=== PATIENT | male | born 1965 | race Caucasian/White ===

== ENCOUNTER 2017-01-27 23:41 | Inpatient (IN) ==
[2017-01-28 00:53] LABS: Basophils % 0.2 % (0.0-0.8); Eosinophils # 0.1 10*3/uL (0.0-0.87); Eosinophils % 0.7 % (0.00-10.9); Hemoglobin 16.8 GM/DL (14.0-18.0); Immature Granulocytes % 0.6 %; Immature Granulocytes Absolute 0.12 #; Lymphocytes # 2.7 10*3/uL (1.4-4.0); Lymphocytes % 14.5 % (21.2-54.2); Mean Corpuscular HGB Conc 35.7 GM/DL (32-36); Mean Corpuscular Hemoglobin 30 PG (27-34); Mean Corpuscular Volume 83.2 FL (87-102); Mean Platelet Volume 12.1 FL (9.6-12.0); Monocytes # 1.5 10*3/uL (0.11-0.8); Monocytes % 7.8 % (1.7-12.7); Neutrophils # 14.4 10*3/uL (1.4-7.4); Neutrophils % 76.2 % (38.7-73.9); Platelet Count 188 T/CUMM (130-400); Red Blood Count 5.65 MC/CUMM (3.8-5.5); Red Cell Distribution Width 11.9 % (9.3-17.3); White Blood Count 18.8 T/CUMM (4-12)
--- NOTE | 2017-01-28 01:02 | Emergency Department Note ---
ILennie Mantricia, am scribing for, and in the presence of, Marly Chappell DO 00:18. ITa Debra, DO, personally performed the services described in this documentation, ascribed by Prakash Hogue in my presence, and it is both accurate and complete . Arrival - Arrival Chief Complaint: Extremity Problem Stated Complaint: foot-toe diabetic ED Nursing Triage Note: C/O RIGHT FOOT PAIN WITH ONSET COUPLE WEEKS AGO. BOTTOM OF GREAT TOE HAS DRAINAGE WITH BLACK TISSUE Mode of Arrival: Wheelchair Limitations: No Limitations Source: Patient Time Seen by Provider: 01/28/17 00:01 - History of Present Illness HPI Narrative: Pt is a 51 y/o white male arriving to ED via wheelchair with c/o wound to RLE that onset "weeks" ago. Pt states that this wound was due to a fall 8 years ago. He states that he was told a year ago that he was a diabetic. Pt reports that he has not taken his medications in 2 months. He states that the wound has now began to drain. No other complaints were reported to ED. Onset (ago): week(s) Consistency: constant Severity: moderate Allergies/Adverse Reactions: Allergies Allergy/AdvReac Type Severity Reaction Status Date / Time Penicillins Allergy RASH Verified 01/27/17 23:48 Review of System - Review of System 12 point system: reviewed and no additional remarkable complaints except as stated - Review of System Constitutional: Absent: chills, diaphoresis, fever Respiratory: Absent: cough Gastrointestinal: Absent: abdominal pain, nausea, vomiting, diarrhea Musculoskeletal: Present: other (wound to right foot). Absent: arm pain, back pain, leg pain, neck pain Medical,Surgical,& Family Hx - Medical History Endocrine: History of: Diabetes Mellitus (NIDDM) Respiratory: History of: Respiratory Problems - Family History Family History: Reports;: Family Cancer, Family Diabetes, Family Heart Disease, Family Hypertension - Social History Smoking Status: Current every day smoker Frequency of Alcohol Use: None Type of Drug Use: Marijuana Exam Vital Signs: Vital Signs Temperature 98.7 F 01/28/17 00:00 Pulse Rate 122 H 01/28/17 00:00 Respiratory Rate 20 01/28/17 00:00 Blood Pressure 156/100 01/28/17 00:00 O2 Sat by Pulse Oximetry 99 01/27/17 23:43 - General General appearance: alert, in no apparent distress, other (poor hygiene) - Head Head exam: Present: atraumatic, normocephalic - Eye Eye exam: Present: normal appearance, PERRL, EOMI - ENT ENT exam: Present: normal exam - Neck Neck exam: Present: normal inspection - Chest Chest inspection: Present: normal inspection - Respiratory Respiratory exam: Present: normal lung sounds bilaterally - Cardiovascular Cardiovascular exam: Present: regular rate, normal rhythm, normal heart sounds - Abdominal Exam Abdominal exam: Present: soft. Absent: distention, tenderness, guarding, rebound - Extremities Exam Extremities exam: Present: normal capillary refill, other (necrotic tissue wound to right great toe; blacked; foul smelling) - Back Exam Back exam: Present: normal inspection - Neurological Exam Neurological exam: Present: alert, oriented X3, CN II-XII intact - Psychiatric Psychiatric exam: Present: normal affect, normal mood - Skin Skin exam: Present: warm, dry, intact, normal color Course Course Narrative: pt will be admitted to hospitalist with sx to be consulted. is stable at this time . clindamycin started. Results - Labs CBC & BMP: 01/28/17 00:17 01/28/17 00:17 Lab Results: I have reviewed the patients labs Disposition Clinical Impression: Diabetic ulcer of foot associated with type 2 diabetes mellitus, with necrosis of bone Case discussed with: patient, patient's family Disposition: Still a Patient Condition: Stable Time of Disposition: 01:42
[2017-01-28 01:07] LABS: Albumin 3.7 G/DL (3.4-5.0); Bilirubin,Total 0.9 MG/DL (0.2-1.0); Osmolality,Calculated 279.1 MOS/KG (273-304); Potassium 4.1 MMOL/L (3.5-5.1); Total Protein 8.3 G/DL (6.4-8.3)
[2017-01-28] MEDS ORDERED: CLINDAMYCIN INJ 900 MG in PREMIX 1 EACH IV STA (01:18)
[2017-01-28] MEDS ORDERED: CLINDAMYCIN INJ 50 ML IV ONE (01:20)
[2017-01-28 01:25] LABS: Band Neutrophils 3 % (0-10); Eosinophils 1 % (0-10); Lymphocytes 19 % (20-55); Myelocytes 1 %; Segmented Neutrophils 67 % (50-85); Total Cells Counted 100
[2017-01-28 01:26] LABS: Atypical Lymphocytes Few; Platelet Estimate Normal
[2017-01-28] MEDS ORDERED: MORPHINE 2 MG/1 ML SYRINGE IV PRN (03:19)
[2017-01-28] MEDS ORDERED: ONDANSETRON 4 MG/2 ML VIAL IV PRN (03:19)
[2017-01-28] MEDS ORDERED: ACETAMINOPHEN 325 MG TABLET PO PRN (03:19)
[2017-01-28] MEDS ORDERED: DEXTROSE 50% 25 GM/50 ML SYRINGE IV PRN (03:37)
[2017-01-28] MEDS ORDERED: GLUCAGON 1 MG VIAL IM PRN ×2 (03:37→14:53)
[2017-01-28 05:49] LABS: Basophils % 0.2 % (0.0-0.8); Eosinophils # 0.2 10*3/uL (0.0-0.87); Hemoglobin 14.7 GM/DL (14.0-18.0); Immature Granulocytes % 0.9 %; Immature Granulocytes Absolute 0.18 #; Lymphocytes # 3.6 10*3/uL (1.4-4.0); Lymphocytes % 18.2 % (21.2-54.2); Mean Corpuscular HGB Conc 35.9 GM/DL (32-36); Mean Corpuscular Hemoglobin 30 PG (27-34); Mean Platelet Volume 11.7 FL (9.6-12.0); Monocytes # 1.8 10*3/uL (0.11-0.8); Monocytes % 9.1 % (1.7-12.7); Neutrophils # 13.8 10*3/uL (1.4-7.4); Neutrophils % 70.6 % (38.7-73.9); Platelet Count 209 T/CUMM (130-400); Red Blood Count 4.94 MC/CUMM (3.8-5.5); Red Cell Distribution Width 11.9 % (9.3-17.3); White Blood Count 19.6 T/CUMM (4-12)
--- NOTE | 2017-01-28 05:54 | Hospitalist History & Physical ---
Assessment and Plan - Time spent with patient Time spent with patient: Greater than 30 minutes (1) Sepsis Status: Acute Assessment and plan: Admit to hospitalist services. Consult surgery. Consult wound care. Sepsis criteria: HR 122, RR 22, WBC 18.8, infection source: right great toe. Lactic acid pending. He may actually meet severe sepsis criteria depending on lactic acid results. Wound cultures obtained in ED; follow. Blood cultures ordered; follow. Given Clindamycin 900 mg IV in ED. Continue antibiotic therapy with Clindamycin. Hydrate with NS at 125 ml/hr. Current Visit: Yes (2) Diabetic ulcer of foot associated with type 2 diabetes mellitus, with necrosis of bone Status: Acute Assessment and plan: As above. Current Visit: Yes (3) Diabetes mellitus Status: Chronic Assessment and plan: He reports that the takes Metformin 1000 mg BID but doesn't have any home medications listed for review/reconciliation. ADA diet. Accuchecks and SSI ACHS. Current Visit: Yes Qualifiers: Diabetes mellitus type: type 2 Diabetes mellitus complication status: with skin complications Diabetes mellitus complication detail: with foot ulcer (4) Hypertension Status: Chronic Assessment and plan: He reports he takes Lisinopril 5 mg daily, but no home medications are listed for review/reconciliation. BP is elevated at 150/92. Start Lisinopril 5 mg PO daily. Monitor. Current Visit: Yes (5) DVT prophylaxis Status: Acute Assessment and plan: Lovenox 40 mg SQ daily. Current Visit: Yes History of Present Illness Chief complaint: Right foot pain and swelling History of present illness: Mr. Chavez is a 51 year old male with a reported past medical history of NIDDM, HTN, and COPD who presented to the ED tonight with complaints of right great toe and right foot pain, redness, swelling, and foul-smelling drainage x 2 weeks. He denies any known fever. He reports that he has not been taking his Metformin for the last 6-8 weeks because he recently moved to the area and hasn' t had the ability to establish with a PCP because of lack of transportation and money. His work-up in the ED was significant for HR 122, RR 22, WBC 18.8, Na 135 , and Blood glucose 257. Currently, he is sitting up in bed without any further complaints. Hospitalist services were consulted, and the patient will be admitted for further evaluation and treatment. Home medications were reviewed and reconciled. This patient is a full code. Allergies Allergy/AdvReac Type Severity Reaction Status Date / Time Penicillins Allergy RASH Verified 01/27/17 23:48 Medical,Surgical,& Family Hx - Medical History Cardio: History of: Hypertension Endocrine: History of: Diabetes Mellitus (NIDDM) Respiratory: History of: COPD, Respiratory Problems ("spots on Lungs"; told he needs a PET scan. ) Musculoskeletal: History of: Musculoskeletal Problems (Problems w/ feet after fall in 2009. ) - Surgical History Additional Surgical History: Surgical history discussed with the patient. He denies any surgical history. - Family History Family History: Reports;: Family Cancer, Family Diabetes, Family Heart Disease, Family Hypertension - Social History Smoking Status: Current every day smoker (1/2 ppd.) Have you smoked in the last 12 months: Yes Time spent discussing smoking cessation with patient: 3 to 10 minutes (3 minutes were spent discussing smoking cessation with the patient.) Frequency of Alcohol Use: None Type of Drug Use: Marijuana (reports occasional use. ) Marital Status: Lives With:: Alone Functional capacity: independent ambulation 12 point system: reviewed and no additional remarkable complaints except as stated - Constitutional Constitutional: Absent: anorexia, chills, fever(s), weakness - EENT Eyes: Absent: blurry vision, diplopia, loss of vision Ears: Absent: decreased hearing, ear discharge, ear pain Nose, mouth and throat: Absent: headache(s), nasal congestion, sore throat - Cardiovascular Cardiovascular: Absent: chest pain at rest, chest pain with activity, dyspnea, edema, orthopnea, palpitations - Respiratory Respiratory: Absent: cough, dyspnea, wheezing - Gastrointestinal Gastrointestinal: Absent: abdominal pain, constipation, diarrhea, nausea, vomiting - Genitourinary Genitourinary: Absent: dysuria, flank pain, hematuria, urinary frequency - Musculoskeletal Musculoskeletal: Present: other (pain, redness, swelling of right great toe and foot). Absent: arthralgias, joint swelling, muscle weakness, myalgias - Neurological Neurological: Absent: confusion, dizziness, numbness, paresthesias, syncope - Psychiatric Psychiatric: Absent: anxiety, depression - Endocrine Endocrine: Absent: cold intolerance, polydipsia, polyphagia, polyuria - Hematologic/Lymphatic Hematologic/Lymphatic: Absent: easy bleeding, easy bruising Exam - Constitutional Vitals: Period Temp Pulse Resp BP Sys/Sadler Pulse Ox Last 24 Hr 98.3 F-98.7 F 65-122 18-22 150-159/92-100 99-100 Exam: Constitutional System: Afebrile. Awake, alert and oriented x 3. No distress. No tremulousness. Head: Normocephalic, atraumatic. Ears, Nose and Throat System: No pain or tenderness. No epistaxis or discharge Eyes System: Pupils equal, round, and reactive. Extraocular muscles intact. Neck: Supple, without adenopathy, No jugular venous distention. No thyromegaly, neck mass, or prior surgery apparent. Respiratory System: Chest clear to auscultation. Cardiovascular System: Heart with tachycardic rate and rhythm. No murmur. GI System: Abdomen soft, nontender. Normo active bowel sounds present. Musculoskeletal System: Redness and swelling of right great toe and foot noted. Right great toe has necrotic area on plantar side. Foul-smelling drainage noted. Limbs with no pedal edema. Full distal pulses. Normal capillary refill. Neurological System: No discernable sensory deficit. No aphasia Psychiatric System: Conversation is rational Results - Labs CBC & BMP: 01/28/17 00:17 01/28/17 00:17 Lab Results: I have reviewed the past 24 hour labs
--- NOTE | 2017-01-28 06:14 | Event Note ---
Patient seen and examined agree with the finding assessment and management mentioned above unless indicated. Ms. Chavez is a 51-year-old with history of hypertension diabetes mellitus and COPD. He started having swelling redness and pain left foot for about 2 weeks. He denies any fever. No history of recent injury but does report remote injury to left foot. He was noted to have a leukocytosis and hypoglycemia he has been not taking his oral hypoglycemic medications On exam he has redness and tenderness and swelling left foot with some ulceration and necrotic area under the big toe. X-ray did not reveal any gross bony abnormalities but official report is pending. Blood culture has been obtained patient received IV clindamycin in the ER. He has been allergic to penicillin. Will treat with clindamycin and follow with the response. Wound care and surgery already consulted blood sugar has been monitored and short- acting insulin as needed is been ordered Mr. Chavez is a 51 year old male with a reported past medical history of NIDDM, HTN, and COPD who presented to the ED tonight with complaints of right great toe and right foot pain, redness, swelling, and foul-smelling drainage x 2 weeks. He denies any known fever. He reports that he has not been taking his Metformin for the last 6-8 weeks because he recently moved to the area and hasn' t had the ability to establish with a PCP because of lack of transportation and money. His work-up in the ED was significant for HR 122, RR 22, WBC 18.8, Na 135 , and Blood glucose 257. Currently, he is sitting up in bed without any further complaints. Hospitalist services were consulted, and the patient will be admitted for further evaluation and treatment. Home medications were reviewed and reconciled. This patient is a full code.
[2017-01-28 06:15] LABS: Calcium 8.9 MG/DL (8.5-10.1); Magnesium 1.7 MG/DL (1.8-2.4); Potassium 3.7 MMOL/L (3.5-5.1)
[2017-01-28] MEDS: SODIUM CHLORIDE 0.9% 1,000 ML IV SCH ×3 (06:46→22:40)
[2017-01-28] MEDS ORDERED: LEVOFLOXACIN INJ 750 MG in PREMIX 1 EACH IV SCH (08:00)
--- NOTE | 2017-01-28 08:13 | XRay Report ---
XR foot 2V RT Indication: Foot wound Comparison: None available Findings: No evidence of fracture seen. The alignment of the joints appears normal. Mild to moderate first metatarsal phalangeal joint degenerative change is present. Small amount of gas seen in the soft tissues of the first digit. No other soft tissue abnormality is seen. Impression: Small amount of gas in the soft tissues of the first digit. 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 No other evidence of abnormality demonstrated PROCEDURE INTERPRETED AT [facility] DEPARTMENT OF RADIOLOGY Final Report Signed by: Dr. Duarte Spencer
[2017-01-28] MEDS: ENOXAPARIN 40 MG/0.4 ML SYRINGE SUBCUT SCH (10:07)
[2017-01-28] MEDS: INSULIN LISPRO 100 UNIT/ML SUBCUT SCH ×4 (10:09→20:43)
[2017-01-28] MEDS: LISINOPRIL 5 MG TABLET PO SCH (10:09)
[2017-01-28] MEDS: VANCOMYCIN INJ 1,500 MG in SODIUM CHLORIDE 0.9% 500 ML IV SCH ×2 (10:10→20:42)
[2017-01-28] MEDS: PANTOPRAZOLE 40 MG TABLET PO SCH (10:10)
--- NOTE | 2017-01-28 10:15 | General Surgery Consult Note ---
Assessment and Plan (1) Diabetic ulcer of foot associated with type 2 diabetes mellitus, with necrosis of bone Status: Acute Assessment and plan: Impression: Diabetic foot infection Plan: X-ray shows no osteomyelitis. I discussed debridement of the nonviable tissue and the possibility of needing right great toe amputation. Patient is a pathetic and says to do whatever needs to be done. He was rude at times. The risk of the procedure including bleeding, infection, damage to surrounding structures, need for further surgery, possibility of needing great toe amputation, open wound were all discussed in detail and he says simply "go ahead ". Current Visit: Yes History of Present Illness Chief complaint: Diabetic infection right foot History of present illness: Mr. Chavez is a 51 year old male presented to the emergency room. He was admitted by the hospitalist and surgery was consulted upon admission. Patient has a diabetic infection of his right great toe. He has purulence draining. This is been going on for 2 weeks. He denies fever. He was tachycardic upon admission. He is not been taking his metformin. Home Medications Medication Instructions Recorded Confirmed Type Gabapentin Cap/Tab [Neurontin 01/28/17 History Cap/Tab] Lisinopril [Prinivil] 5 mg PO DAILY 01/28/17 01/28/17 History Topiramate [Topamax] 01/28/17 History metFORMIN [Glucophage] 1,000 mg PO BID 01/28/17 01/28/17 History Allergies Allergy/AdvReac Type Severity Reaction Status Date / Time Penicillins Allergy RASH Verified 01/27/17 23:48 Medical,Surgical,& Family Hx - Medical History Cardio: History of: Hypertension Endocrine: History of: Diabetes Mellitus (NIDDM) Respiratory: History of: COPD, Respiratory Problems ("spots on Lungs"; told he needs a PET scan. ) Musculoskeletal: History of: Musculoskeletal Problems (Problems w/ feet after fall in 2009. ) - Surgical History Abdominal Surgeries: Surgical HX of: Colonoscopy ("a year ago") - Family History Family History: Reports;: Family Cancer, Family Diabetes, Family Heart Disease, Family Hypertension - Social History Smoking Status: Current every day smoker (1/2 ppd.) Frequency of Alcohol Use: None Type of Drug Use: Marijuana (reports occasional use. ) 12 point system: reviewed and no additional remarkable complaints except as stated Exam - Constitutional Vitals: Period Temp Pulse Resp BP Sys/Sadler Pulse Ox Last 24 Hr 97.6 F-98.7 F 65-122 18-22 150-159/83-100 97-100 General appearance: no acute distress - Head Head exam: Present: normocephalic - Neck Neck exam: Present: normal inspection - Respiratory Respiratory exam: Present: clear to auscultation bilaterally - Cardiovascular Cardiovascular exam: Present: RRR - GI/Abdominal GI/Abdominal exam: Present: soft - Extremities Exam Extremities exam: Present: other (Right great toe with necrotic tissue and foul- smelling purulence draining. He has erythema in the right great toe is moderately swollen. Erythema extends approximately to the distal foot. He is tender near the metatarsophalangeal joint.) - Neurological Exam Neurological exam: Present: alert, oriented X3 Speech: Present: normal - Skin Skin exam: Present: warm, erythema Results - Labs CBC & BMP: 01/28/17 05:38 01/28/17 05:38 Lab Results: I have reviewed the past 24 hour labs
--- NOTE | 2017-01-28 12:02 | Hospitalist Progress Note ---
Assessment and Plan (1) Diabetic ulcer of foot associated with type 2 diabetes mellitus, with necrosis of bone Status: Acute Assessment and plan: possible need for amputation, change abx to vanco and meropenem, put in isolation Current Visit: Yes (2) Sepsis Status: Acute Assessment and plan: 1.3, cont ns Current Visit: Yes (3) Diabetes mellitus Status: Chronic Assessment and plan: Globin A1c of 8, blood sugars elevated. Patient going to the OR for most likely amputation hold off restarting meds, until eating Current Visit: Yes Qualifiers: Diabetes mellitus type: type 2 Diabetes mellitus complication status: with skin complications Diabetes mellitus complication detail: with foot ulcer (4) Hypertension Status: Chronic Assessment and plan: cont lisinopril Current Visit: Yes (5) DVT prophylaxis Status: Acute Assessment and plan: cont lovenox Current Visit: Yes Hospitalist: Subjective Interval history: Patient not very talkative when I was in the room. He just wanted to sleep. He had a necrotic area on his right big toe. Surgery had yet to see him. Dr. Finch has recommended debridement. Medications reviewed and reconciled. Exam - Constitutional Vitals: Period Temp Pulse Resp BP Sys/Sadler Pulse Ox Last 24 Hr 97.6 F-98.7 F 65-122 18-22 150-159/83-100 97-100 Exam: Heart Rate-[RRR] Lungs-[CTAB] GI-[+bs soft, NT] Ext-[right great toe necrosis on the back of his toe.] Neuro sleeping did not want to be bothered psych depressed mood and affect General [no acute distress] Results - Labs CBC & BMP: 01/28/17 05:38 01/28/17 05:38 Lab Results: I have reviewed the past 24 hour labs - Diagnostic Findings Procedure: X-ray: report reviewed by me (Small amount of gas in the tissues of his right toe.)
[2017-01-28] MEDS ORDERED: PROPOFOL 200 MG/20 ML VIAL IV ONE (12:55)
[2017-01-28] MEDS ORDERED: PHENYLEPHRINE 1 MG/10 ML SYRINGE IV ONE (12:55)
[2017-01-28] MEDS ORDERED: LIDOCAINE 2% 5 ML VIAL ONE (12:55)
--- NOTE | 2017-01-28 13:39 | Operative Note ---
Date of procedure: 01/28/17 Pre-op diagnosis: Diabetic infection right foot and right great toe Post-op diagnosis: same (Infection involved fascia and the distal phalanx) Procedure: Procedure performed: Excisional debridement of right great toe and right distal foot including necrotic infected skin subcutaneous tissue, fascia and bone. Area debrided was 8 x 3 cm Procedure in detail: After informed consent was obtained, patient was taken operating suite lies upon the operating table. After monitored anesthesia was initiated the right foot was prepped and draped in usual sterile fashion. A procedural pause local anesthetic infiltrated the skin and subcutaneous tissue. Incision was made on the plantar aspect of the great toe around the necrotic skin. I encountered necrotic subcutaneous tissue that extended onto the foot below the skin level. Incision was extended to allow further excision of all the necrotic tissue. The infection appeared to track along the plantar fascia to the distal foot. There was copious amount of foul-smelling purulence. Cultures obtained and sent. All of the necrotic subcutaneous tissue skin and fascia was removed. The tip of the phalanx was exposed to the necrotic tissue. The tip of the phalanx was Chacho consistent with osteomyelitis. Bone rongeurs were used to debride and remove all the obvious osteomyelitic bone. The wound was irrigated and suctioned. It was packed with Dakin soaked gauze. Sterile dressings applied and the patient tolerated the procedure well. Will continue antibiotics and local wound care but salvage of this toe is questionable. Patient was transferred to the recovery room in stable condition. All lap and needle counts were correct at the end of the case. Anesthesia: MAC Surgeon / Physician: Fabio Finch Estimated blood loss: other (Less than 10 cc) Specimens: other (Culture sent) Condition: stable Disposition: PACU Results - Labs CBC & BMP: 01/28/17 05:38 01/28/17 05:38 Discharge Plan - Discharge Medications No Action Topiramate [Topamax] Lisinopril [Prinivil] 5 mg PO DAILY Gabapentin Cap/Tab [Neurontin Cap/Tab] metFORMIN [Glucophage] 1,000 mg PO BID - Follow Up or Referral - Forms/Instructions
--- NOTE | 2017-01-28 13:47 | Anesthesia Post-Op ---
Anesthesia Post OP - Post Ansesthetic Evaluation Patient seen in post op: Yes Resp: within normal limits CV: within normal limits Mental: within normal limits Temp: within normal limits [id number]: within normal limits Nausea and Vomiting: within normal limits Pain: within normal limits
[2017-01-28] MEDS ORDERED: fentaNYL 100 MCG/2 ML VIAL ONE (13:53)
[2017-01-28] MEDS ORDERED: MIDAZOLAM 2 MG/2 ML VIAL ONE (13:53)
[2017-01-28] MEDS ORDERED: DEXTROSE 50% 25 GM/50 ML VIAL IV PRN (14:53)
[2017-01-28] MEDS: MEROPENEM 1,000 MG in SODIUM CHLORIDE 0.9% 50 ML IV SCH ×2 (15:12→22:40)
[2017-01-28] MEDS: metFORMIN 500 MG TABLET PO SCH (20:38)
[2017-01-28] MEDS: GABAPENTIN 100 MG CAPSULE PO SCH (20:39)
[2017-01-28] MEDS: TOPIRAMATE 25 MG TABLET PO SCH (20:39)
[2017-01-29 03:33] LABS: Basophils % 0.2 % (0.0-0.8); Eosinophils # 0.2 10*3/uL (0.0-0.87); Eosinophils % 1.7 % (0.00-10.9); Hematocrit 34.3 VOL% (42.0-52.0); Hemoglobin 12.2 GM/DL (14.0-18.0); Immature Granulocytes % 0.6 %; Immature Granulocytes Absolute 0.08 #; Lymphocytes # 2.9 10*3/uL (1.4-4.0); Lymphocytes % 22.2 % (21.2-54.2); Mean Corpuscular HGB Conc 35.6 GM/DL (32-36); Mean Corpuscular Hemoglobin 30 PG (27-34); Mean Corpuscular Volume 83.3 FL (87-102); Monocytes # 1.1 10*3/uL (0.11-0.8); Monocytes % 8.7 % (1.7-12.7); Neutrophils # 8.5 10*3/uL (1.4-7.4); Neutrophils % 66.6 % (38.7-73.9); Platelet Count 248 T/CUMM (130-400); Red Blood Count 4.12 MC/CUMM (3.8-5.5); Red Cell Distribution Width 11.9 % (9.3-17.3); White Blood Count 12.8 T/CUMM (4-12)
[2017-01-29] MEDS: MEROPENEM 1,000 MG in SODIUM CHLORIDE 0.9% 50 ML IV SCH ×3 (06:20→22:35)
[2017-01-29] MEDS: INSULIN LISPRO 100 UNIT/ML SUBCUT SCH ×4 (10:20→21:34)
[2017-01-29] MEDS: VANCOMYCIN INJ 1,500 MG in SODIUM CHLORIDE 0.9% 500 ML IV SCH ×2 (10:33→20:56)
[2017-01-29] MEDS: ENOXAPARIN 40 MG/0.4 ML SYRINGE SUBCUT SCH (10:33)
[2017-01-29] MEDS: GABAPENTIN 100 MG CAPSULE PO SCH ×2 (10:33→20:55)
[2017-01-29] MEDS: metFORMIN 500 MG TABLET PO SCH ×2 (10:34→20:56)
[2017-01-29] MEDS: LISINOPRIL 5 MG TABLET PO SCH (10:34)
[2017-01-29] MEDS: PANTOPRAZOLE 40 MG TABLET PO SCH (10:34)
[2017-01-29] MEDS: SODIUM CHLORIDE 0.9% 1,000 ML IV SCH ×3 (10:42→23:07)
--- NOTE | 2017-01-29 11:04 | Event Note ---
Afebrile vital signs stable. White blood cell count improved to 12.8. The wound appears clean and healthy. Still with some tenderness of the distal foot. There is no necrotic tissue present. Erythema has improved. Continue local wound care and antibiotics.
--- NOTE | 2017-01-29 12:21 | Hospitalist Progress Note ---
Assessment and Plan (1) Diabetic ulcer of foot associated with type 2 diabetes mellitus, with necrosis of bone Status: Acute Assessment and plan: Status post debridement. Continue vancomycin and meropenem, with culture growing gram-negative rods and gram-positive cocci Current Visit: Yes (2) Sepsis Status: Acute Assessment and plan: 1.3, cont ns Current Visit: Yes (3) Diabetes mellitus Status: Chronic Assessment and plan: BS not controlled, Current Visit: Yes Qualifiers: Diabetes mellitus type: type 2 Diabetes mellitus complication status: with skin complications Diabetes mellitus complication detail: with foot ulcer (4) Hypertension Status: Chronic Assessment and plan: stop lisinopril, cont ns Current Visit: Yes (5) DVT prophylaxis Status: Acute Assessment and plan: cont lovenox Current Visit: Yes Hospitalist: Subjective Interval history: Dr. Finch was able to save the toe yesterday. He had aggressive debridement of his right big toe. Patient very depressed. He has no insurance and he is in the process of filing for disability. He lives alone and has limited care for him but his sister is a nurse at the hospital here and lives about 5 miles from him. He probably will not be able to put pressure on this toe for a while. Exam - Constitutional Vitals: Period Temp Pulse Resp BP Sys/Sadler Pulse Ox Last 24 Hr 97.0 F-99.3 F 66-87 16-20 96-127/48-81 92-99 Exam: Heart Rate-[RRR] Lungs-[CTAB] GI-[+bs soft, NT] Ext-[right toe debridement, no necrosis, clean Neuro motor 5/5, alert and oriented times 3 psych depressed mood and affect General [no acute distress] Results - Labs CBC & BMP: 01/29/17 02:34 01/28/17 05:38 Lab Results: I have reviewed the past 24 hour labs Labs: Blood cultures negative no growth, wound culture growing gram-negative rods, and gram positive cocci
[2017-01-29] MEDS: TOPIRAMATE 25 MG TABLET PO SCH (20:56)
[2017-01-30] MEDS: MEROPENEM 1,000 MG in SODIUM CHLORIDE 0.9% 50 ML IV SCH ×3 (06:25→23:27)
[2017-01-30 06:32] LABS: Basophils % 0.4 % (0.0-0.8); Eosinophils # 0.7 10*3/uL (0.0-0.87); Eosinophils % 7.4 % (0.00-10.9); Hematocrit 33.4 VOL% (42.0-52.0); Immature Granulocytes % 0.7 %; Immature Granulocytes Absolute 0.07 #; Lymphocytes # 2.3 10*3/uL (1.4-4.0); Lymphocytes % 24.4 % (21.2-54.2); Mean Corpuscular HGB Conc 35.9 GM/DL (32-36); Mean Corpuscular Hemoglobin 30 PG (27-34); Mean Corpuscular Volume 83.5 FL (87-102); Mean Platelet Volume 12.4 FL (9.6-12.0); Monocytes # 0.9 10*3/uL (0.11-0.8); Neutrophils # 5.5 10*3/uL (1.4-7.4); Neutrophils % 58.1 % (38.7-73.9); Platelet Count 219 T/CUMM (130-400); Red Cell Distribution Width 11.9 % (9.3-17.3); White Blood Count 9.4 T/CUMM (4-12)
[2017-01-30] MEDS: INSULIN LISPRO 100 UNIT/ML SUBCUT SCH ×4 (07:45→20:49)
[2017-01-30] MEDS: ENOXAPARIN 40 MG/0.4 ML SYRINGE SUBCUT SCH (08:22)
[2017-01-30] MEDS: metFORMIN 500 MG TABLET PO SCH ×2 (08:22→20:47)
[2017-01-30] MEDS: GABAPENTIN 100 MG CAPSULE PO SCH ×2 (08:22→20:46)
[2017-01-30] MEDS: PANTOPRAZOLE 40 MG TABLET PO SCH (08:26)
[2017-01-30] MEDS: VANCOMYCIN INJ 1,500 MG in SODIUM CHLORIDE 0.9% 500 ML IV SCH ×2 (09:21→18:40)
--- NOTE | 2017-01-30 10:26 | Event Note ---
Patient is postop day #2 status post excisional debridement of diabetic infection of the right foot. He continues on vancomycin and Merrem with cultures pending; pulmonary cultures with gram-negative rods and gram-positive cocci. He had a low-grade fever overnight T-max 100.1. Patient reports overall he feels improved. On exam, the erythema is unchanged compared to yesterday. The wound bed has serous exudate without significant malodor noted; the wound bed tissue is viable. The distal phalanx is palpable. Leukocytosis has resolved. At this point, recommend continuing IV antibiotics, local wound care and monitoring. The patient is still at risk to undergo some level of amputation.
--- NOTE | 2017-01-30 13:27 | Hospitalist Progress Note ---
Assessment and Plan (1) Diabetic ulcer of foot associated with type 2 diabetes mellitus, with necrosis of bone Status: Acute Assessment and plan: The patient continues with IV vancomycin and IV meropenem. I coordinate care with Dr. Beatty and he is considering further amputation. Diabetes is well- controlled at present. Current Visit: Yes (2) Sepsis Status: Acute Current Visit: Yes (3) Diabetes mellitus Status: Chronic Current Visit: Yes Qualifiers: Diabetes mellitus type: type 2 Diabetes mellitus complication status: with skin complications Diabetes mellitus complication detail: with foot ulcer (4) Hypertension Status: Chronic Current Visit: Yes Hospitalist: Subjective Interval history: The patient was admitted to the hospital with right diabetic foot infection. The patient has had debridement by Dr. Beatty and continues on IV antibiotics with vancomycin and meropenem. I coordinate care with Dr. Beatty today and updated the patient concerning his condition. The patient may require further amputation. Exam - Constitutional Vitals: Period Temp Pulse Resp BP Sys/Sadler Pulse Ox Last 24 Hr 97.9 F-100.1 F 75-81 18-21 108-155/54-90 93-100 Exam: Constitutional System: Mild distress on account of foot pain. No tremulousness. Head: Normocephalic, atraumatic. Ears, Nose and Throat System: No evidence of Otitis or Mastoiditis. No epistaxis or discharge Eyes System: Pupils equal, round, and reactive. Extraocular muscles intact. Neck: Supple, without adenopathy, No jugular venous distention. No thyromegaly , neck mass, or prior surgery apparent. Respiratory System: Chest clear to auscultation. Cardiovascular System: Heart with regular rate and rhythm. No murmur. GI System: Abdomen soft, nontender. Normo active bowel sounds present. Results - Labs CBC & BMP: 01/30/17 04:32 01/28/17 05:38 Lab Results: I have reviewed the past 24 hour labs
[2017-01-30] MEDS: SODIUM CHLORIDE 0.9% 1,000 ML IV SCH (15:19)
[2017-01-30] MEDS: TOPIRAMATE 25 MG TABLET PO SCH (20:48)
[2017-01-31] MEDS: VANCOMYCIN INJ 1,500 MG in SODIUM CHLORIDE 0.9% 500 ML IV SCH ×3 (02:04→18:48)
[2017-01-31] MEDS: MEROPENEM 1,000 MG in SODIUM CHLORIDE 0.9% 50 ML IV SCH ×3 (06:10→21:47)
[2017-01-31 07:12] LABS: Basophils % 0.4 % (0.0-0.8); Eosinophils # 0.9 10*3/uL (0.0-0.87); Eosinophils % 9.9 % (0.00-10.9); Hematocrit 34.8 VOL% (42.0-52.0); Hemoglobin 12.2 GM/DL (14.0-18.0); Immature Granulocytes % 0.4 %; Immature Granulocytes Absolute 0.04 #; Lymphocytes # 2.2 10*3/uL (1.4-4.0); Lymphocytes % 24.4 % (21.2-54.2); Mean Corpuscular HGB Conc 35.1 GM/DL (32-36); Mean Corpuscular Hemoglobin 29 PG (27-34); Mean Corpuscular Volume 83.9 FL (87-102); Monocytes # 0.8 10*3/uL (0.11-0.8); Monocytes % 8.5 % (1.7-12.7); Neutrophils # 5.1 10*3/uL (1.4-7.4); Neutrophils % 56.4 % (38.7-73.9); Platelet Count 220 T/CUMM (130-400); Red Blood Count 4.15 MC/CUMM (3.8-5.5); Red Cell Distribution Width 11.9 % (9.3-17.3)
[2017-01-31] MEDS ORDERED: DEXTROSE 50% 25 GM/50 ML SYRINGE IV PRN (07:15)
[2017-01-31] MEDS ORDERED: GLUCAGON 1 MG VIAL IM PRN (07:15)
[2017-01-31 07:43] LABS: Calcium 8.3 MG/DL (8.5-10.1); Magnesium 1.7 MG/DL (1.8-2.4); Osmolality,Calculated 278.3 MOS/KG (273-304)
[2017-01-31] MEDS: INSULIN LISPRO 100 UNIT/ML SUBCUT SCH ×4 (08:40→22:06)
[2017-01-31] MEDS: GABAPENTIN 100 MG CAPSULE PO SCH ×2 (10:02→21:48)
[2017-01-31] MEDS: metFORMIN 500 MG TABLET PO SCH ×2 (10:02→21:49)
[2017-01-31] MEDS: ENOXAPARIN 40 MG/0.4 ML SYRINGE SUBCUT SCH (10:03)
--- NOTE | 2017-01-31 10:06 | Event Note ---
Patient is postop day #3 status post surgical debridement of right diabetic foot infection. He was afebrile overnight. He has no complaints this morning. Wound was inspected, the wound bed is virtually unchanged but there is decreased erythema about the foot; no obvious necrosis or malodor present. Labs reviewed; no leukocytosis noted. Cultures with polymicrobial infection including Proteus mirabilis ESBL, and gram-positive cocci and gram-negative justyn with identification pending. At this time, would like to continue to monitor for another 24 hours of IV antibiotics as the erythema is improved today. Patient still may require surgical debridement, and we will evaluate in the morning. Dr. Finch to follow
[2017-01-31] MEDS: PANTOPRAZOLE 40 MG TABLET PO SCH (10:11)
--- NOTE | 2017-01-31 14:59 | Hospitalist Progress Note ---
Assessment and Plan (1) Diabetic ulcer of foot associated with type 2 diabetes mellitus, with necrosis of bone Status: Acute Assessment and plan: The patient continues with IV vancomycin and IV meropenem. I coordinated care with Dr. Beatty and he is continuing with watchful waiting. Diabetes is well- controlled at present. Current Visit: Yes (2) Sepsis Status: Acute Current Visit: Yes (3) Diabetes mellitus Status: Chronic Current Visit: Yes Qualifiers: Diabetes mellitus type: type 2 Diabetes mellitus complication status: with skin complications Diabetes mellitus complication detail: with foot ulcer (4) Hypertension Status: Chronic Current Visit: Yes Hospitalist: Subjective Interval history: The patient continues therapy for diabetic foot infection. IV antibiotics continue. Dr. Finch evaluated the wound today did not feel that surgery was required. He stated that the patient might be ready for discharge home tomorrow on oral antibiotics pending his examination in the morning. Exam - Constitutional Vitals: Period Temp Pulse Resp BP Sys/Sadler Pulse Ox Last 24 Hr 96.9 F-98.6 F 67-86 18-20 104-162/55-95 92-97 Exam: Constitutional System: Mild distress on account of foot pain. No tremulousness. Head: Normocephalic, atraumatic. Ears, Nose and Throat System: No evidence of Otitis or Mastoiditis. No epistaxis or discharge Eyes System: Pupils equal, round, and reactive. Extraocular muscles intact. Neck: Supple, without adenopathy, No jugular venous distention. No thyromegaly , neck mass, or prior surgery apparent. Respiratory System: Chest clear to auscultation. Cardiovascular System: Heart with regular rate and rhythm. No murmur. GI System: Abdomen soft, nontender. Normo active bowel sounds present. Results - Labs CBC & BMP: 01/31/17 06:02 01/31/17 06:02 Lab Results: I have reviewed the past 24 hour labs
[2017-01-31] MEDS: SODIUM CHLORIDE 0.9% 1,000 ML IV SCH ×3 (21:34→22:06)
[2017-01-31] MEDS: TOPIRAMATE 25 MG TABLET PO SCH (21:49)
[2017-02-01] MEDS: SODIUM CHLORIDE 0.9% 1,000 ML IV SCH (02:07)
[2017-02-01] MEDS: VANCOMYCIN INJ 1,500 MG in SODIUM CHLORIDE 0.9% 500 ML IV SCH ×2 (02:12→09:39)
[2017-02-01] MEDS: MEROPENEM 1,000 MG in SODIUM CHLORIDE 0.9% 50 ML IV SCH (05:17)
[2017-02-01] MEDS: INSULIN LISPRO 100 UNIT/ML SUBCUT SCH (07:37)
[2017-02-01 08:38] LABS: Basophils % 0.5 % (0.0-0.8); Eosinophils # 0.9 10*3/uL (0.0-0.87); Eosinophils % 10.6 % (0.00-10.9); Hematocrit 36.4 VOL% (42.0-52.0); Hemoglobin 13.1 GM/DL (14.0-18.0); Immature Granulocytes % 0.7 %; Immature Granulocytes Absolute 0.06 #; Lymphocytes # 1.8 10*3/uL (1.4-4.0); Lymphocytes % 21.8 % (21.2-54.2); Mean Corpuscular Hemoglobin 30 PG (27-34); Mean Corpuscular Volume 82.5 FL (87-102); Mean Platelet Volume 10.7 FL (9.6-12.0); Monocytes # 0.7 10*3/uL (0.11-0.8); Monocytes % 8.8 % (1.7-12.7); Neutrophils # 4.8 10*3/uL (1.4-7.4); Neutrophils % 57.6 % (38.7-73.9); Platelet Count 263 T/CUMM (130-400); Red Blood Count 4.41 MC/CUMM (3.8-5.5); Red Cell Distribution Width 11.9 % (9.3-17.3); White Blood Count 8.3 T/CUMM (4-12)
[2017-02-01] MEDS ORDERED: SODIUM HYPOCHLORITE 0.25% IRRIG 473 ML BOTTLE TOP SCH (09:00)
[2017-02-01] MEDS: PANTOPRAZOLE 40 MG TABLET PO SCH (09:39)
[2017-02-01] MEDS: ENOXAPARIN 40 MG/0.4 ML SYRINGE SUBCUT SCH (09:39)
[2017-02-01] MEDS: GABAPENTIN 100 MG CAPSULE PO SCH (09:39)
[2017-02-01] MEDS: metFORMIN 500 MG TABLET PO SCH (09:45)
--- NOTE | 2017-02-01 10:57 | Event Note ---
Patient is postop day #4 status post surgical debridement of right diabetic foot infection. He was afebrile overnight. He has no complaints this morning. Wound was inspected, the wound bed with decreased exudate and erythema; no obvious necrosis or malodor present. Labs reviewed; no leukocytosis noted. Cultures with polymicrobial infection including Proteus mirabilis ESBL, enterococcus) and Bacteroides uniformis. No plans for surgical intervention at this time. I recommend continued wound care and oral antibiotics with close follow-up. Patient is aware that he is still at risk for loss of the toe and/ or partial loss of the foot. Recommend daily dressing changes with Dakin's wet- to-dry dressing, and follow Dr. Finch in 1 week. Patient states he has a reliable neighbor that can help him with this on a daily basis.
[2017-02-01] MEDS ORDERED: DEXTROSE 50% 25 GM/50 ML VIAL IV PRN (11:00)
[2017-02-01 11:17] VITALS: BP 151/84
--- NOTE | 2017-02-01 11:23 | Discharge Summary ---
Hospital Course - Hospital Course Hospital Course: This diabetic patient was admitted to the hospital with right foot infection. He required debridement and has a large scar on the plantar surface of the right foot which emanates from the head of the right great toe. The patient was seen in consultation by Dr. Beatty. He was treated with IV antibiotics. Dr. Finch and the patient discussed possible surgical options. Dr. Finch did not feel it amputation was required. He recommended discharge home on oral antibiotics and follow-up with him in the office in a week. On the date of discharge, the chest is clear and abdomen soft. Patient medications were reconciled upon admission, and again at the time of discharge. The patient was screened for tobacco use and found to be a occasional smoker. The patient was given 4 minutes of tobacco avoidance education. The patient's medical decsion maker is themself, and when asked, they asked to be Full code. Discharge Time was 34 minutes, including final examination, evaluation and planning, education, reconciliation of medications, writing prescriptions, coordinating care with case checker, and preparing discharge documentation. - Time spent with patient Time with patient DS: Greater than 30 minutes Time spent discussing smoking cessation with patient: 3 to 10 minutes (4 minutes ) Diagnosis - Discharge Diagnosis (1) Diabetic ulcer of foot associated with type 2 diabetes mellitus, with necrosis of bone Status: Chronic (2) Sepsis Status: Resolved (3) Diabetes mellitus Status: Chronic (4) Hypertension Status: Chronic Discharge Plan - Discharge Data Disposition: Disch To Home/Self Care Condition at Discharge: Stable Discharge Diet: diabetic diet - Discharge Medications New HYDROcodone/ACETAMIN 7.5-325 [Browder 7.5-325] 1 tablet PO Q4H PRN #30 tablet PRN Reason: Pain Moderate (4-7) Ciprofloxacin Tab [Cipro Tab] 500 mg PO BID #20 tablet Continue Topiramate [Topamax] 25 mg PO BEDTIME Lisinopril [Prinivil] 5 mg PO DAILY Gabapentin Cap/Tab [Neurontin Cap/Tab] metFORMIN [Glucophage] 1,000 mg PO BID - Follow Up or Referral Follow Up: Fabio Finch MD [Physician] - 1 Week - Forms/Instructions Exam - Constitutional Vitals: Period Temp Pulse Resp BP Sys/Sadler Pulse Ox Last 24 Hr 97.0 F-98.5 F 67-76 18-20 128-156/58-96 95-98 Discharge Results Procedures and tests throughout hospitalization: Pending Orders 01/28/17 05:38 Blood Culture Stat Labs on day of discharge: Labs from last 24 hours 02/01/17 02/01/17 02/01/17 10:45 08:22 06:38 WBC 8.3 RBC 4.41 Hgb 13.1 L Hct 36.4 L MCV 82.5 L MCH 30 MCHC 36.0 RDW 11.9 Plt Count 263 MPV 10.7 Neut % (Auto) 57.6 Lymph % (Auto) 21.8 Gem % (Auto) 8.8 Eos % (Auto) 10.6 Baso % (Auto) 0.5 Neut # (Auto) 4.8 Lymph # (Auto) 1.8 Gem # (Auto) 0.7 Eos # (Auto) 0.9 H Baso # (Auto) 0.0 Immature Gran % 0.7 Nucleated RBC % 0.0 Immature Gran # 0.06 Nucleated RBCs # 0.00 Immature Plt Fraction 0.0 POC Glucose 250 H 134 H Vancomycin Trough 01/31/17 01/31/17 01/31/17 20:45 17:35 16:04 WBC RBC Hgb Hct MCV MCH MCHC RDW Plt Count MPV Neut % (Auto) Lymph % (Auto) Gem % (Auto) Eos % (Auto) Baso % (Auto) Neut # (Auto) Lymph # (Auto) Gem # (Auto) Eos # (Auto) Baso # (Auto) Immature Gran % Nucleated RBC % Immature Gran # Nucleated RBCs # Immature Plt Fraction POC Glucose 145 H 145 H Vancomycin Trough 16.7 Preliminary micro results at discharge 01/28/17 05:38 Blood Culture - Preliminary Blood No growth at 3 days 01/28/17 05:38 Blood Culture - Preliminary Blood No growth at 3 days DS: Provider Date of admission: 01/28/17 03:12 Primary care physician: . No PCP Attending physician on admission: Riccardo Levin MD Consults: 01/28/17 03:19 Consult to Physician [CONS] Routine Comment: Necrotic right great toe Consulting Provider: Fabio Finch Person Notified: Dr. Finch saw on rounds Date Notified: 01/28/17 Time Notified: 09:50 01/28/17 03:25 Consult to Wound Care - [place] [CONS] Routine Reason for Wound Care: Wound Care Management Consult Comment: Necrotic right great toe 01/28/17 06:23 Consult to Pharmacy [CONS] Routine Reason for Pharmacy Consult: Dose/Manage Vancomycin 01/29/17 15:53 Consult to Case Mgmt/Social Srvs [CONS] Routine Reason for Case Mgmt/Social Srvs: Home Health Consult Comment: no insurance, Consult to Occupational Therapy [CONS] Routine Reason for Occupational Therapy: Evaluate and Treat Consult to Physical Therapy [CONS] Routine Reason for Physical Therapy: Evaluate and Treat Discharging clinician: El Romeo MD
== END 2017-02-01 14:16 | disposition home or self-care (01) | DRG 854 ==
LOC: N.ED 23:41 → N.3E 01-28 03:12 → SUATTDRO 01-28 03:12 → N.3E 01-28 04:52
PROVIDERS: ADMIT Internal Medicine; ATTEND Internal Medicine

== ENCOUNTER 2017-06-06 09:51 | Inpatient (IN) ==
[2017-06-06] MEDS ORDERED: ONDANSETRON 4 MG/2 ML VIAL IV PRN (12:38)
[2017-06-06] MEDS ORDERED: ACETAMINOPHEN 325 MG TABLET PO PRN (12:38)
[2017-06-06] MEDS ORDERED: MORPHINE 2 MG/1 ML SYRINGE IV PRN ×2 (12:38→14:09)
[2017-06-06 14:12] LABS: Basophils % 0.2 % (0.0-0.8); Eosinophils # 0.1 10*3/uL (0.0-0.87); Eosinophils % 0.9 % (0.00-10.9); Hematocrit 39.4 VOL% (42.0-52.0); Immature Granulocytes % 0.7 %; Lymphocytes # 2.3 10*3/uL (1.4-4.0); Mean Corpuscular HGB Conc 35.5 GM/DL (32-36); Mean Corpuscular Hemoglobin 30 PG (27-34); Mean Corpuscular Volume 83.8 FL (87-102); Mean Platelet Volume 11.6 FL (9.6-12.0); Monocytes # 1.3 10*3/uL (0.11-0.8); Monocytes % 8.7 % (1.7-12.7); Neutrophils # 10.6 10*3/uL (1.4-7.4); Neutrophils % 73.5 % (38.7-73.9); Platelet Count 275 T/CUMM (130-400); Red Cell Distribution Width 12.2 % (9.3-17.3); White Blood Count 14.4 T/CUMM (4-12)
[2017-06-06 14:22] LABS: Partial Thromboplastin Time 29.2 SECS (0-40)
[2017-06-06 14:40] LABS: Albumin 3.4 G/DL (3.4-5.0); Bilirubin,Total 1.1 MG/DL (0.2-1.0); Calcium 9.2 MG/DL (8.5-10.1); Osmolality,Calculated 276.2 MOS/KG (273-304); Potassium 4.3 MMOL/L (3.5-5.1); Total Protein 8.5 G/DL (6.4-8.3)
[2017-06-06] MEDS ORDERED: GLUCAGON 1 MG VIAL IM PRN (15:20)
[2017-06-06] MEDS ORDERED: DEXTROSE 50% 25 GM/50 ML VIAL IV PRN (15:20)
[2017-06-06] MEDS ORDERED: diphenhydrAMINE CAP 25 MG CAPSULE PO PRN (15:42)
[2017-06-06] MEDS: MEROPENEM 1,000 MG in SYRINGE 1 EACH IV SCH (16:46)
[2017-06-06] MEDS: SODIUM CHLORIDE 0.9% 1,000 ML IV SCH (16:51)
[2017-06-06] MEDS: VANCOMYCIN INJ 1,500 MG in SODIUM CHLORIDE 0.9% 500 ML IV SCH (17:31)
[2017-06-06] MEDS: INSULIN LISPRO 100 UNIT/ML SUBCUT SCH ×3 (18:49→22:03)
[2017-06-06] MEDS: ENOXAPARIN 40 MG/0.4 ML SYRINGE SUBCUT SCH (22:01)
[2017-06-07] MEDS: VANCOMYCIN INJ 1,500 MG in SODIUM CHLORIDE 0.9% 500 ML IV SCH (04:51)
[2017-06-07] MEDS: MEROPENEM 1,000 MG in SYRINGE 1 EACH IV SCH (04:52)
[2017-06-07] MEDS: INSULIN LISPRO 100 UNIT/ML SUBCUT SCH ×4 (07:43→21:49)
[2017-06-07] MEDS: LISINOPRIL 10 MG TABLET PO SCH (08:23)
[2017-06-07] MEDS: PANTOPRAZOLE 40 MG TABLET PO SCH (08:23)
[2017-06-07 09:00] LABS: Basophils % 0.4 % (0.0-0.8); Eosinophils # 0.3 10*3/uL (0.0-0.87); Eosinophils % 2.4 % (0.00-10.9); Hematocrit 34.3 VOL% (42.0-52.0); Hemoglobin 11.5 GM/DL (14.0-18.0); Immature Granulocytes % 0.6 %; Immature Granulocytes Absolute 0.07 #; Lymphocytes # 2.9 10*3/uL (1.4-4.0); Lymphocytes % 26.9 % (21.2-54.2); Mean Corpuscular HGB Conc 33.5 GM/DL (32-36); Mean Corpuscular Hemoglobin 29 PG (27-34); Mean Corpuscular Volume 87.3 FL (87-102); Mean Platelet Volume 11.6 FL (9.6-12.0); Monocytes # 1.1 10*3/uL (0.11-0.8); Monocytes % 10.3 % (1.7-12.7); Neutrophils # 6.4 10*3/uL (1.4-7.4); Neutrophils % 59.4 % (38.7-73.9); Platelet Count 239 T/CUMM (130-400); Red Blood Count 3.93 MC/CUMM (3.8-5.5); White Blood Count 10.8 T/CUMM (4-12)
[2017-06-07] MEDS ORDERED: ALBUTEROL/IPRATROPIUM 3 ML NEB RESP TX PRN (09:00)
[2017-06-07 09:10] LABS: Calcium 8.2 MG/DL (8.5-10.1)
[2017-06-07] MEDS: CLINDAMYCIN INJ 600 MG in PREMIX 1 EACH IV SCH ×2 (10:27→19:10)
[2017-06-07] MEDS ORDERED: DIAZEPAM 5 MG TABLET PO ONE (10:37)
[2017-06-07] MEDS ORDERED: MIDAZOLAM 10 MG/2 ML VIAL IV ONE (10:37)
[2017-06-07] MEDS ORDERED: fentaNYL 100 MCG/2 ML VIAL IV ONE (10:37)
[2017-06-07] MEDS ORDERED: SODIUM CHLORIDE 0.45% 1,000 ML IV SCH (11:00)
[2017-06-07] MEDS: LEVOFLOXACIN INJ 500 MG in PREMIX 1 EACH IV SCH (11:08)
[2017-06-07] MEDS ORDERED: HEPARIN/NACL 0.9% 2 UNITS/ML 2,000 ML IV ONE (13:15)
[2017-06-07] MEDS ORDERED: fentaNYL 100 MCG/2 ML VIAL ONE (14:24)
[2017-06-07] MEDS ORDERED: MIDAZOLAM 2 MG/2 ML VIAL ONE (14:24)
[2017-06-07] MEDS ORDERED: HEPARIN 5,000 UNIT/1 ML VIAL ONE (15:24)
[2017-06-07] MEDS ORDERED: HEPARIN 5,000 UNIT/1 ML VIAL IV PRN ×3 (15:48→17:17)
[2017-06-07] MEDS ORDERED: ALTEPLASE 2 MG VIAL ONE ×3 (15:52→16:56)
[2017-06-07] MEDS ORDERED: HEPARIN 1,000 UNIT/1 ML VIAL ONE ×2 (16:29→17:13)
[2017-06-07] MEDS: SODIUM CHLORIDE 0.9% 1,000 ML IV SCH ×2 (21:30→21:49)
[2017-06-07] MEDS: HEPARIN DRIP 25,000 UNITS/500 ML PREMIX IV SCH (22:05)
[2017-06-08 01:08] LABS: Apearance,Urine CLEAR (Clear); Bilirubin,Urine Negative (Negative); Blood, Urine Small mg/dL (Negative); Glucose,Urine (UA) >=500 mg/dL (Negative); Ketones,Urine Negative (Negative); Mucus,Urine Occasional /LPF (Occasional); Nitrite,Urine Negative (Negative); Protein,Urine Negative; RBC,Urine <1 /HPF (0-4); Squamous Epithelial Cell,Urine Occasional /HPF (0-10); Urine Color Yellow (Yellow); Urine Specific Gravity 1.017 (1.001-1.035); Urine Urobilinogen < 2.0 EU/DL (0.2-1.0); WBC,Urine 1 /HPF (0-6)
[2017-06-08] MEDS: CLINDAMYCIN INJ 600 MG in PREMIX 1 EACH IV SCH ×3 (01:18→15:20)
[2017-06-08] MEDS: SODIUM CHLORIDE 0.9% 1,000 ML IV SCH ×3 (05:47→21:58)
[2017-06-08 06:17] LABS: Basophils % 0.5 % (0.0-0.8); Eosinophils # 0.3 10*3/uL (0.0-0.87); Eosinophils % 3.1 % (0.00-10.9); Hematocrit 33.6 VOL% (42.0-52.0); Hemoglobin 11.6 GM/DL (14.0-18.0); Immature Granulocytes % 0.6 %; Immature Granulocytes Absolute 0.05 #; Lymphocytes # 2.5 10*3/uL (1.4-4.0); Lymphocytes % 31.6 % (21.2-54.2); Mean Corpuscular HGB Conc 34.5 GM/DL (32-36); Mean Corpuscular Hemoglobin 29 PG (27-34); Mean Corpuscular Volume 85.1 FL (87-102); Monocytes # 0.8 10*3/uL (0.11-0.8); Neutrophils # 4.3 10*3/uL (1.4-7.4); Neutrophils % 54.2 % (38.7-73.9); Platelet Count 194 T/CUMM (130-400); Red Blood Count 3.95 MC/CUMM (3.8-5.5); Red Cell Distribution Width 11.9 % (9.3-17.3)
[2017-06-08 06:23] LABS: PT Patient Result 10.8 SECS; Partial Thromboplastin Time 35.2 SECS (0-40)
[2017-06-08 06:33] LABS: Osmolality,Calculated 273.7 MOS/KG (273-304); Potassium 4.4 MMOL/L (3.5-5.1)
[2017-06-08] MEDS: INSULIN LISPRO 100 UNIT/ML SUBCUT SCH ×4 (07:43→21:55)
[2017-06-08] MEDS: PANTOPRAZOLE 40 MG TABLET PO SCH (09:15)
[2017-06-08] MEDS: LISINOPRIL 10 MG TABLET PO SCH (09:15)
[2017-06-08 10:16] LABS: PT Patient Result 10.8 SECS; Partial Thromboplastin Time 31.7 SECS (0-40)
[2017-06-08] MEDS: LEVOFLOXACIN INJ 500 MG in PREMIX 1 EACH IV SCH (11:39)
[2017-06-08 16:13] LABS: PT Patient Result 10.9 SECS; Partial Thromboplastin Time 29.2 SECS (0-40)
[2017-06-08] MEDS: HEPARIN DRIP 25,000 UNITS/500 ML PREMIX IV SCH (19:58)
[2017-06-08 22:40] LABS: PT Patient Result 10.9 SECS; Partial Thromboplastin Time 33.8 SECS (0-40)
[2017-06-09] MEDS: CLINDAMYCIN INJ 600 MG in PREMIX 1 EACH IV SCH ×3 (01:05→17:01)
[2017-06-09] MEDS: SODIUM CHLORIDE 0.9% 1,000 ML IV SCH (06:18)
[2017-06-09 06:19] LABS: PT Patient Result 10.9 SECS
[2017-06-09 06:32] LABS: Partial Thromboplastin Time 44.4 SECS (0-40)
[2017-06-09] MEDS: INSULIN LISPRO 100 UNIT/ML SUBCUT SCH ×4 (07:26→21:27)
[2017-06-09] MEDS: LISINOPRIL 10 MG TABLET PO SCH (09:07)
[2017-06-09] MEDS: PANTOPRAZOLE 40 MG TABLET PO SCH (09:08)
[2017-06-09] MEDS: LEVOFLOXACIN INJ 500 MG in PREMIX 1 EACH IV SCH (10:02)
[2017-06-09] MEDS: ASPIRIN EC 81 MG TABLET PO SCH (10:03)
[2017-06-09 10:44] LABS: PT Patient Result 10.9 SECS; Partial Thromboplastin Time 29.7 SECS (0-40)
[2017-06-09] MEDS: metFORMIN 500 MG TABLET PO SCH (21:20)
[2017-06-09] MEDS: ENOXAPARIN 40 MG/0.4 ML SYRINGE SUBCUT SCH (21:21)
[2017-06-10] MEDS: CLINDAMYCIN INJ 600 MG in PREMIX 1 EACH IV SCH ×3 (00:45→17:05)
[2017-06-10 04:46] LABS: Basophils % 0.4 % (0.0-0.8); Eosinophils # 0.7 10*3/uL (0.0-0.87); Hematocrit 33.9 VOL% (42.0-52.0); Hemoglobin 11.4 GM/DL (14.0-18.0); Immature Granulocytes % 0.8 %; Immature Granulocytes Absolute 0.08 #; Lymphocytes % 20.5 % (21.2-54.2); Mean Corpuscular HGB Conc 33.6 GM/DL (32-36); Mean Corpuscular Hemoglobin 29 PG (27-34); Mean Platelet Volume 11.3 FL (9.6-12.0); Monocytes # 0.9 10*3/uL (0.11-0.8); Monocytes % 8.9 % (1.7-12.7); Neutrophils # 6.1 10*3/uL (1.4-7.4); Neutrophils % 62.4 % (38.7-73.9); Platelet Count 240 T/CUMM (130-400); Red Blood Count 3.94 MC/CUMM (3.8-5.5); Red Cell Distribution Width 11.9 % (9.3-17.3); White Blood Count 9.8 T/CUMM (4-12)
[2017-06-10 05:15] LABS: Calcium 8.3 MG/DL (8.5-10.1); Magnesium 1.7 MG/DL (1.8-2.4); Osmolality,Calculated 277.5 MOS/KG (273-304); Potassium 4.2 MMOL/L (3.5-5.1)
[2017-06-10] MEDS: INSULIN LISPRO 100 UNIT/ML SUBCUT SCH ×4 (07:32→21:35)
[2017-06-10] MEDS ORDERED: MAGNESIUM SULF RIDER 4 GM in PREMIX 1 EACH IV ONE (08:52)
[2017-06-10] MEDS: metFORMIN 500 MG TABLET PO SCH ×2 (09:09→21:35)
[2017-06-10] MEDS: ASPIRIN EC 81 MG TABLET PO SCH (09:09)
[2017-06-10] MEDS: PANTOPRAZOLE 40 MG TABLET PO SCH (09:09)
[2017-06-10] MEDS: LISINOPRIL 10 MG TABLET PO SCH (09:09)
[2017-06-10] MEDS: LEVOFLOXACIN INJ 500 MG in PREMIX 1 EACH IV SCH (09:33)
[2017-06-10] MEDS: GABAPENTIN 300 MG CAPSULE PO SCH ×2 (14:58→21:35)
[2017-06-10] MEDS: ENOXAPARIN 40 MG/0.4 ML SYRINGE SUBCUT SCH (21:35)
[2017-06-11] MEDS: CLINDAMYCIN INJ 600 MG in PREMIX 1 EACH IV SCH ×3 (05:09→21:15)
[2017-06-11] MEDS: INSULIN LISPRO 100 UNIT/ML SUBCUT SCH ×4 (07:59→21:16)
[2017-06-11] MEDS: GABAPENTIN 300 MG CAPSULE PO SCH ×3 (08:24→21:15)
[2017-06-11] MEDS: PANTOPRAZOLE 40 MG TABLET PO SCH ×2 (08:24→08:26)
[2017-06-11] MEDS: LISINOPRIL 10 MG TABLET PO SCH (08:24)
[2017-06-11] MEDS: ASPIRIN EC 81 MG TABLET PO SCH (08:24)
[2017-06-11] MEDS: metFORMIN 500 MG TABLET PO SCH ×2 (08:24→21:15)
[2017-06-11] MEDS: LEVOFLOXACIN INJ 500 MG in PREMIX 1 EACH IV SCH (08:25)
[2017-06-11] MEDS: ENOXAPARIN 40 MG/0.4 ML SYRINGE SUBCUT SCH (21:15)
[2017-06-11] MEDS ORDERED: DOCUSATE SODIUM 100 MG CAPSULE PO ONE (22:18)
[2017-06-12] MEDS: CLINDAMYCIN INJ 600 MG in PREMIX 1 EACH IV SCH (05:34)
[2017-06-12 06:15] LABS: Basophils # 0.1 10*3/uL (0.0-0.2); Basophils % 0.4 % (0.0-0.8); Eosinophils # 0.9 10*3/uL (0.0-0.87); Eosinophils % 6.6 % (0.00-10.9); Hematocrit 33.7 VOL% (42.0-52.0); Hemoglobin 11.6 GM/DL (14.0-18.0); Immature Granulocytes Absolute 0.14 #; Lymphocytes # 2.1 10*3/uL (1.4-4.0); Lymphocytes % 15.2 % (21.2-54.2); Mean Corpuscular HGB Conc 34.4 GM/DL (32-36); Mean Corpuscular Hemoglobin 29 PG (27-34); Mean Corpuscular Volume 84.7 FL (87-102); Mean Platelet Volume 11.7 FL (9.6-12.0); Monocytes # 1.2 10*3/uL (0.11-0.8); Monocytes % 8.5 % (1.7-12.7); Neutrophils # 9.3 10*3/uL (1.4-7.4); Neutrophils % 68.3 % (38.7-73.9); Platelet Count 274 T/CUMM (130-400); Red Blood Count 3.98 MC/CUMM (3.8-5.5); Red Cell Distribution Width 12.3 % (9.3-17.3); White Blood Count 13.6 T/CUMM (4-12)
[2017-06-12 06:46] LABS: Calcium 8.1 MG/DL (8.5-10.1); Magnesium 1.6 MG/DL (1.8-2.4); Osmolality,Calculated 274.8 MOS/KG (273-304); Potassium 4.1 MMOL/L (3.5-5.1)
[2017-06-12] MEDS: INSULIN LISPRO 100 UNIT/ML SUBCUT SCH ×4 (08:06→21:14)
[2017-06-12] MEDS ORDERED: DEXTROSE 50% 25 GM/50 ML VIAL IV PRN (08:31)
[2017-06-12] MEDS ORDERED: GLUCAGON 1 MG VIAL IM PRN (08:31)
[2017-06-12] MEDS: LISINOPRIL 10 MG TABLET PO SCH (09:15)
[2017-06-12] MEDS: GABAPENTIN 300 MG CAPSULE PO SCH ×3 (09:15→21:14)
[2017-06-12] MEDS: ASPIRIN EC 81 MG TABLET PO SCH (09:15)
[2017-06-12] MEDS: VANCOMYCIN INJ 1,500 MG in SODIUM CHLORIDE 0.9% 500 ML IV SCH ×2 (09:16→19:15)
[2017-06-12] MEDS: PANTOPRAZOLE 40 MG TABLET PO SCH (09:16)
[2017-06-12] MEDS: ENOXAPARIN 40 MG/0.4 ML SYRINGE SUBCUT SCH (21:14)
[2017-06-13] MEDS: VANCOMYCIN INJ 1,500 MG in SODIUM CHLORIDE 0.9% 500 ML IV SCH ×3 (01:07→21:08)
[2017-06-13 04:18] LABS: Basophils % 0.3 % (0.0-0.8); Eosinophils % 7.6 % (0.00-10.9); Hematocrit 31.9 VOL% (42.0-52.0); Hemoglobin 11.1 GM/DL (14.0-18.0); Immature Granulocytes % 1.4 %; Immature Granulocytes Absolute 0.17 #; Lymphocytes # 2.6 10*3/uL (1.4-4.0); Lymphocytes % 20.7 % (21.2-54.2); Mean Corpuscular HGB Conc 34.8 GM/DL (32-36); Mean Corpuscular Hemoglobin 29 PG (27-34); Mean Corpuscular Volume 84.6 FL (87-102); Monocytes # 1.1 10*3/uL (0.11-0.8); Monocytes % 8.8 % (1.7-12.7); Neutrophils # 7.7 10*3/uL (1.4-7.4); Neutrophils % 61.2 % (38.7-73.9); Platelet Count 276 T/CUMM (130-400); Red Blood Count 3.77 MC/CUMM (3.8-5.5); Red Cell Distribution Width 12.2 % (9.3-17.3); White Blood Count 12.6 T/CUMM (4-12)
[2017-06-13 04:55] LABS: Calcium 8.6 MG/DL (8.5-10.1); Magnesium 1.7 MG/DL (1.8-2.4); Osmolality,Calculated 272.8 MOS/KG (273-304); Potassium 4.3 MMOL/L (3.5-5.1)
[2017-06-13] MEDS ORDERED: DIAZEPAM 5 MG TABLET PO ONE (05:30)
[2017-06-13] MEDS ORDERED: FAMOTIDINE 20 MG TABLET PO ONE (05:30)
[2017-06-13] MEDS: INSULIN LISPRO 100 UNIT/ML SUBCUT SCH ×4 (08:10→21:08)
[2017-06-13] MEDS: LISINOPRIL 10 MG TABLET PO SCH (09:36)
[2017-06-13] MEDS: ASPIRIN EC 81 MG TABLET PO SCH (09:37)
[2017-06-13] MEDS: GABAPENTIN 300 MG CAPSULE PO SCH ×3 (09:37→21:07)
[2017-06-13] MEDS: PANTOPRAZOLE 40 MG TABLET PO SCH (09:38)
[2017-06-13] MEDS ORDERED: MAGNESIUM SULF RIDER 2 GM in PREMIX 1 EACH IV ONE (09:51)
[2017-06-13] MEDS ORDERED: VANCOMYCIN 500 MG VIAL ONE (09:52)
[2017-06-13] MEDS ORDERED: fentaNYL 2 MCG/ROPIV 0.2% EPID 150 ML EPIDURAL ONE (09:54)
[2017-06-13] MEDS ORDERED: ROPIVACAINE 0.5% 30 ML VIAL ONE (10:06)
[2017-06-13] MEDS: LACTATED RINGERS 1,000 ML IV SCH ×2 (10:30→11:46)
[2017-06-13] MEDS ORDERED: DEXTROSE 50% 25 GM/50 ML VIAL IV PRN (11:49)
[2017-06-13] MEDS ORDERED: GLUCAGON 1 MG VIAL IM PRN (11:49)
[2017-06-13] MEDS ORDERED: diphenhydrAMINE CAP 25 MG CAPSULE PO PRN (12:05)
[2017-06-13] MEDS ORDERED: ONDANSETRON 4 MG/2 ML VIAL IV PRN (12:05)
[2017-06-13] MEDS ORDERED: diphenhydrAMINE 50 MG/1 ML VIAL IV PRN (12:05)
[2017-06-13] MEDS ORDERED: MIDAZOLAM 2 MG/2 ML VIAL ONE (12:23)
[2017-06-13] MEDS ORDERED: fentaNYL 100 MCG/2 ML VIAL ONE (12:23)
[2017-06-13] MEDS ORDERED: PROPOFOL 200 MG/20 ML VIAL IV ONE (12:23)
[2017-06-13] MEDS ORDERED: PHENYLEPHRINE 10 MG/1 ML VIAL IV ONE (12:24)
[2017-06-13] MEDS ORDERED: KETAMINE 500 MG/10 ML VIAL ONE ×2 (12:24→12:26)
[2017-06-13 12:39] LABS: Apearance,Urine CLEAR (Clear); Bilirubin,Urine Negative (Negative); Blood, Urine Small mg/dL (Negative); Glucose,Urine (UA) Negative (Negative); Ketones,Urine Negative (Negative); Mucus,Urine Occasional /LPF (Occasional); Nitrite,Urine Negative (Negative); Protein,Urine Negative; RBC,Urine 1 /HPF (0-4); Squamous Epithelial Cell,Urine Occasional /HPF (0-10); Urine Color Straw (Yellow); Urine Specific Gravity 1.006 (1.001-1.035); Urine Urobilinogen < 2.0 EU/DL (0.2-1.0); WBC,Urine <1 /HPF (0-6)
[2017-06-13] MEDS ORDERED: MORPHINE 2 MG/1 ML SYRINGE IV PRN (14:15)
[2017-06-13] MEDS: MORPHINE 2 MG/1 ML SYRINGE IV PRN (14:39)
[2017-06-13] MEDS ORDERED: LIDOCAINE MPF 2% /EPI 20 ML VIAL ONE (14:48)
[2017-06-13] MEDS ORDERED: HYDROmorphone 2 MG/1 ML VIAL IV ONE (15:11)
[2017-06-13] MEDS ORDERED: KETOROLAC 30 MG/1 ML VIAL IV ONE (16:24)
[2017-06-13] MEDS: fentaNYL 2 MCG/ROPIV 0.2% EPID 150 ML EPIDURAL SCH (16:57)
[2017-06-13] MEDS ORDERED: LIDOCAINE 2% 20 ML VIAL ONE (17:09)
[2017-06-13] MEDS: KETOROLAC 15 MG/1 ML VIAL IV SCH (19:47)
[2017-06-13] MEDS: DULoxetine 30 MG CAPSULE PO SCH (21:07)
[2017-06-13] MEDS ORDERED: MAGNESIUM SULF RIDER 2 GM in PREMIX 1 EACH IV PRN (21:55)
[2017-06-13] MEDS ORDERED: MAGNESIUM SULF RIDER 4 GM in PREMIX 1 EACH IV PRN (21:55)
[2017-06-14] MEDS: KETOROLAC 15 MG/1 ML VIAL IV SCH ×4 (01:10→21:37)
[2017-06-14 06:24] LABS: Basophils # 0.1 10*3/uL (0.0-0.2); Basophils % 0.4 % (0.0-0.8); Eosinophils # 0.9 10*3/uL (0.0-0.87); Eosinophils % 6.9 % (0.00-10.9); Hematocrit 33.8 VOL% (42.0-52.0); Hemoglobin 11.7 GM/DL (14.0-18.0); Immature Granulocytes Absolute 0.13 #; Lymphocytes % 14.6 % (21.2-54.2); Mean Corpuscular HGB Conc 34.6 GM/DL (32-36); Mean Corpuscular Hemoglobin 29 PG (27-34); Mean Corpuscular Volume 83.9 FL (87-102); Mean Platelet Volume 11.4 FL (9.6-12.0); Monocytes # 1.2 10*3/uL (0.11-0.8); Monocytes % 9.1 % (1.7-12.7); Neutrophils # 9.2 10*3/uL (1.4-7.4); Platelet Count 300 T/CUMM (130-400); Red Blood Count 4.03 MC/CUMM (3.8-5.5); Red Cell Distribution Width 12.1 % (9.3-17.3); White Blood Count 13.5 T/CUMM (4-12)
[2017-06-14 07:00] LABS: Calcium 8.3 MG/DL (8.5-10.1); Magnesium 2.2 MG/DL (1.8-2.4); Potassium 4.3 MMOL/L (3.5-5.1)
[2017-06-14] MEDS: INSULIN LISPRO 100 UNIT/ML SUBCUT SCH ×4 (08:05→23:05)
[2017-06-14] MEDS: MORPHINE 2 MG/1 ML SYRINGE IV PRN (09:44)
[2017-06-14] MEDS: fentaNYL 2 MCG/ROPIV 0.2% EPID 150 ML EPIDURAL SCH ×2 (09:52→14:32)
[2017-06-14] MEDS: GABAPENTIN 300 MG CAPSULE PO SCH ×3 (10:07→21:32)
[2017-06-14] MEDS: ASPIRIN EC 81 MG TABLET PO SCH (10:07)
[2017-06-14] MEDS: PANTOPRAZOLE 40 MG TABLET PO SCH (10:08)
[2017-06-14] MEDS: LISINOPRIL 10 MG TABLET PO SCH (10:08)
[2017-06-14] MEDS: VANCOMYCIN INJ 1,500 MG in SODIUM CHLORIDE 0.9% 500 ML IV SCH ×2 (11:53→23:24)
[2017-06-14] MEDS: DULoxetine 30 MG CAPSULE PO SCH (21:32)
[2017-06-15] MEDS: KETOROLAC 15 MG/1 ML VIAL IV SCH ×3 (02:20→16:44)
[2017-06-15] MEDS: fentaNYL 2 MCG/ROPIV 0.2% EPID 150 ML EPIDURAL SCH ×2 (04:19→18:34)
[2017-06-15 06:34] LABS: Basophils # 0.1 10*3/uL (0.0-0.2); Basophils % 0.5 % (0.0-0.8); Eosinophils # 1.4 10*3/uL (0.0-0.87); Eosinophils % 12.6 % (0.00-10.9); Hematocrit 31.1 VOL% (42.0-52.0); Hemoglobin 10.8 GM/DL (14.0-18.0); Immature Granulocytes % 1.1 %; Immature Granulocytes Absolute 0.13 #; Lymphocytes # 2.1 10*3/uL (1.4-4.0); Lymphocytes % 18.5 % (21.2-54.2); Mean Corpuscular HGB Conc 34.7 GM/DL (32-36); Mean Corpuscular Hemoglobin 29 PG (27-34); Mean Corpuscular Volume 84.1 FL (87-102); Mean Platelet Volume 11.2 FL (9.6-12.0); Monocytes % 8.4 % (1.7-12.7); Neutrophils # 6.7 10*3/uL (1.4-7.4); Neutrophils % 58.9 % (38.7-73.9); Platelet Count 264 T/CUMM (130-400); Red Cell Distribution Width 12.1 % (9.3-17.3); White Blood Count 11.4 T/CUMM (4-12)
[2017-06-15 07:07] LABS: Calcium 8.3 MG/DL (8.5-10.1); Magnesium 1.9 MG/DL (1.8-2.4); Potassium 4.3 MMOL/L (3.5-5.1)
[2017-06-15 07:29] LABS: Band Neutrophils 2 % (0-10); Eosinophils 9 % (0-10); Giant Platelets Few; Hypochromasia 1+; Lymphocytes 19 % (20-55); Ovalocytes Slight; Platelet Estimate Adequate; Segmented Neutrophils 64 % (50-85); Total Cells Counted 100
[2017-06-15] MEDS: INSULIN LISPRO 100 UNIT/ML SUBCUT SCH ×4 (10:23→21:29)
[2017-06-15] MEDS: PANTOPRAZOLE 40 MG TABLET PO SCH (10:28)
[2017-06-15] MEDS: LISINOPRIL 10 MG TABLET PO SCH (10:28)
[2017-06-15] MEDS: GABAPENTIN 300 MG CAPSULE PO SCH ×3 (10:31→21:28)
[2017-06-15] MEDS: ASPIRIN EC 81 MG TABLET PO SCH (10:32)
[2017-06-15] MEDS: VANCOMYCIN INJ 1,500 MG in SODIUM CHLORIDE 0.9% 500 ML IV SCH ×2 (10:35→21:29)
[2017-06-15] MEDS: DULoxetine 30 MG CAPSULE PO SCH (21:28)
[2017-06-16] MEDS: fentaNYL 2 MCG/ROPIV 0.2% EPID 150 ML EPIDURAL SCH (06:20)
[2017-06-16] MEDS: INSULIN LISPRO 100 UNIT/ML SUBCUT SCH ×2 (07:37→12:24)
[2017-06-16] MEDS: PANTOPRAZOLE 40 MG TABLET PO SCH (08:31)
[2017-06-16] MEDS: GABAPENTIN 300 MG CAPSULE PO SCH (08:31)
[2017-06-16] MEDS: VANCOMYCIN INJ 1,500 MG in SODIUM CHLORIDE 0.9% 500 ML IV SCH (08:31)
[2017-06-16] MEDS: LISINOPRIL 10 MG TABLET PO SCH (08:31)
[2017-06-16] MEDS: ASPIRIN EC 81 MG TABLET PO SCH (08:31)
[2017-06-16 10:58] VITALS: BP 144/87
== END 2017-06-16 14:22 | DRG 240 ==
LOC: N.3E 13:16
PROVIDERS: ADMIT Surgery; ATTEND Surgery